=== PATIENT | male | born 1945 | race Caucasian/White ===

== ENCOUNTER 2018-04-02 07:47 | Emergency (ER) | payer OTHER, MEDICARE ==
--- NOTE | 2018-04-02 09:17 | ER Document Report ---
HPI - HPI Patient complains to provider of: needs MR of the right foot Onset: Other - 8 weeks Pain Level: 2 Context: 72 [facility] pt told to come by Dr. Unger at the [facility] to get MRI of the right foot to look for hairline fractures. No order was given to hi,. Original injury was 8 weeks ago, ER x 2 found "chipped bone", hit foot on rock, pain started 1 week later, wore boot that made the MTP hurt more. 2nd xray in ER did not show fx. did not see ortho. It is getting better and not blue anymore and swelling is going down. using walker and wheelchair, not bearing weight. - MUSCULOSKELETAL Musculoskeletal: REPORTS: Extremity pain - right foot Past Medical History - General Information source: Patient, Relative - - Social History Smoking Status: Never Smoker Chew tobacco use (# tins/day): No Frequency of alcohol use: Occasional Drug Abuse: None Lives with: Spouse/Significant other Family History: Reviewed & Not Pertinent Patient has suicidal ideation: No Patient has homicidal ideation: No - Past Medical History Cardiac Medical History: Reports: Hx Hypercholesterolemia, Hx Hypertension Renal/ Medical History: Denies: Hx Peritoneal Dialysis GI Medical History: Reports: Hx Gastroesophageal Reflux Disease Surgical Hx: Negative Vertical Provider Document - CONSTITUTIONAL Agree With Documented VS: Yes Exam Limitations: No Limitations General Appearance: No Apparent Distress - INFECTION CONTROL TRAVEL OUTSIDE OF THE [place] IN LAST 30 DAYS: No - HEENT HEENT: Normocephalic - NECK Neck: Supple - RESPIRATORY Respiratory: Breath Sounds Normal, No Respiratory Distress - CARDIOVASCULAR Cardiovascular: Regular Rate, Regular Rhythm - MUSCULOSKELETAL/EXTREMETIES Musculoskeletal/Extremeties: MAEW, FROM, Tender - tender ankle which is slightly warm, and foot/toes. cap refill less than 3 seconds, ruddier coloration than the left, neither leg has hair. 2+ DP, no sores/lesions - NEURO Level of Consciousness: Alert Motor/Sensory: No Motor Deficit, No Sensory Deficit - DERM Integumentary: No Rash Course - Re-evaluation Re-evalutation: 04/02/18 10:16 [facility] the [facility] the nurse read the MD note, and they wanted him to come to er that day 7-9. there was swelling and they couldn't feel the pedal pulses. they had mentioned MR or CT scan but must have been worried about the vascularity of the foot. 04/02/18 10:19 dr dorman evaluated pt as well and rec. his follow up with pediatric oncology nurse, jeremias wrap [facility] No testing or imaging needed today. - Vital Signs Vital signs: Temp Pulse Resp BP Pulse Ox 84 16 152/84 H 98 04/02/18 07:57 04/02/18 07:57 04/02/18 07:57 04/02/18 07:57 Discharge - Discharge Clinical Impression: right foot/ankle pain and swelling Condition: Good Disposition: HOME, SELF-CARE Instructions: Arthralgia ([facility]) Additional Instructions: Since you have a warm foot and there is a strong dorsalis pedis pulse on the top of the right foot there is no emergency condition or study needed today, nor do we suspect a bone infection since there was never any break in the skin or foot sore. You are also on Plavix so we do not feel that there is a leg vein thrombosis. Jeremias wrap to help reduce some the swelling in the ankle and foot elevate foot above your heart See the pediatric oncology nurse for evaluation to see if MR or CT is needed to evaluate the bones of the foot You may need vein or artery evaluation through CT with contrast since there is no hair on your legs and the nails are thickened on the right foot. Return to the emergency room for increased swelling, increased pain, blue discoloration, cold temperature fever Podiatry in [place]: Minh Moseley DPM Address: [address] [place] [address], [place] [address]
[2018-04-02 11:12] VITALS: BP 145/74
== END 2018-04-02 11:12 | disposition home or self-care (01) ==
LOC: ER 07:47
DX: M79.671 Pain in right foot (principal); M25.571 Pain in right ankle and joints of right foot; M79.89 Other specified soft tissue disorders; W22.8XXA Striking against or struck by other objects, initial encounter; I10 Essential (primary) hypertension
CPT/HCPCS: 99283